=== PATIENT | female | born 1975 | race Caucasian/White ===

== ENCOUNTER 2020-05-05 06:33 | Day surgery (SDC) | payer OTHER ==
[2020-05-01 11:12] LABS: HEMATOCRIT 31.4 % (36.0-47.0); HEMOGLOBIN 10.5 g/dL (12.0-15.5); MEAN CORPUSCULAR HEMOGLOBIN 27.8 pg (27.0-33.4); MEAN CORPUSCULAR HGB CONC 33.5 g/dL (32.0-36.0); MEAN CORPUSCULAR VOLUME 83 fl (80-97); PLATELET COUNT 346 10^3/uL (150-450); RED BLOOD COUNT 3.78 10^6/uL (3.72-5.28); RED CELL DISTRIBUTION WIDTH 15.5 % (11.5-14.0); WHITE BLOOD COUNT 6.2 10^3/uL (4.0-10.5)
[2020-05-01 11:21] LABS: APPEARANCE,URINE CLEAR; BILIRUBIN,URINE NEGATIVE (NEGATIVE); COLOR,URINE YELLOW; GLUCOSE, URINE NEGATIVE (NEGATIVE); KETONES,URINE NEGATIVE (NEGATIVE); LEUKOCYTE ESTERASE,URINE NEGATIVE (NEGATIVE); NITRITE,URINE NEGATIVE (NEGATIVE); PROTEIN,URINE NEGATIVE (NEGATIVE); URINE SPECIFIC GRAVITY 1.018; UROBILINOGEN,URINE NEGATIVE mg/dL (<2.0)
[2020-05-01 11:48] LABS: ANION GAP 7 (5-19); BLOOD UREA NITROGEN 14 mg/dL (7-20); CALCIUM 8.8 mg/dL (8.4-10.2); CARBON DIOXIDE 26 mmol/L (22-30); CHLORIDE 105 mmol/L (98-107); GLUCOSE 92 mg/dL (75-110); POTASSIUM 4.6 mmol/L (3.6-5.0)
[~2020-05-05 06:33] MED LIST: CEFAZOLIN 2 GM/D5W RTU 2 GM/50 ML RTUPB IV ONE; CEFAZOLIN 2 GM/D5W RTU 2 GM/50 ML RTUPB IV PRN; DEXAMETHASONE SOD PHOSPHATE INJ 4 MG/1 ML VIAL ONE; FENTANYL CITRATE INJ/PF 100 MCG/2 ML AMPUL ONE; LACTATED RINGERS 1000 ML IV PRN; LIDOCAINE 0.5% INJ-PF (5 MG/ML) 50 ML SDV SUBCUT PRN; MIDAZOLAM 2 MG/2 ML INJ ONE; ONDANSETRON HCL INJ/PF 4 MG/2 ML SDV ONE; PROPOFOL INJ 200 MG/20 ML VIAL IV ONE
[2020-05-05] MEDS ORDERED: GLYCOPYRROLATE 1 MG/5 ML VIAL ONE (07:00)
[2020-05-05] MEDS ORDERED: SUCCINYLCHOLINE CHLORIDE INJ 200 MG/10 ML VIAL ONE (07:00)
[2020-05-05] MEDS ORDERED: ROPIVACAINE HCL 0.2% INJ/PF (2 MG/ML) 20 ML SDV ONE (07:46)
[2020-05-05] MEDS ORDERED: MEPERIDINE HCL/PF INJ 25 MG/1 ML DISP.SYRIN IV PRN (09:11)
[2020-05-05] MEDS ORDERED: FENTANYL CITRATE INJ/PF 100 MCG/2 ML AMPUL IV PRN ×3 (09:11)
[2020-05-05] MEDS ORDERED: DIPHENHYDRAMINE HCL 50 MG/ML VIAL IV PRN (09:11)
[2020-05-05] MEDS ORDERED: ONDANSETRON HCL INJ/PF 4 MG/2 ML SDV IV PRN ×2 (09:11→10:29)
[2020-05-05] MEDS ORDERED: PROMETHAZINE HCL INJ 25 MG/1 ML VIAL IV PRN ×2 (09:11)
[2020-05-05] MEDS ORDERED: MORPHINE SULFATE 10 MG/ML INJ IV PRN (09:11)
[2020-05-05] MEDS ORDERED: OXYCODONE-ACETAMINOPHEN 5-325 MG TABLET PO PRN (10:29)
--- NOTE | 2020-05-05 10:29 | Operative Report ---
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 Posterior interosseous nerve neurolysis. SURGEON: EDUIN MARIA ANESTHESIA: GA COMPLICATIONS: None ESTIMATED BLOOD LOSS: Minimal PROCEDURE: Indication for above procedure: 44-year-old female who sustained a fall onto her outstretched right upper extremity approximate 1 year ago. Patient was found to have a radial head intra-articular fracture. Initial treatment was nonoperative treatment over time patient developed mechanical symptoms including clicking and pain. MRI was performed demonstrating degenerative changes of the radiocapitellar joint. We discussed treatment options including operative versus nonoperative intervention after attempting consider measures decision was made to proceed with operative treatment. Further discussion was had in the preoperative holding area after further discussion decision was made to forego right elbow arthroscopy and proceed with open procedure including right radial head excision with possible arthroplasty surgery as indicated. Patient verbalized understanding consented for surgical procedure. Procedure In Detail: Patient was seen and evaluated in the preoperative holding area. The RIGHT upper extremity was initialized and marked. Patient received 2g of Ancef IV for bacterial prophylaxis. Patient was taken back to the operative room where transferred to the operative table and placed under general anesthesia. Once they were adequately anesthetized a nonsterile tourniquet was placed on the upper extremity. A surgical team debriefing was performed ensuring all instrumentation was available, the surgical procedure was discussed with possible concerns reviewed. The upper extremity was prepped with ChloraPrep and draped in a sterile fashion. A timeout was done identifying correct patient, procedure and extremity everyone in attendance agree with this and verbalized no concerns. The extremity was exsanguinated the tourniquet was inflated to 250 mmHg. Longitudinal skin incision was made centered over the radial head. Tabor's interval was utilized. Throughout the procedure the forearm was remained in pronation. The capsule was then incised to expose the radiocapitellar joint. There is no evidence of a lateral ulnar collateral ligament or radial collateral ligament disruption. There was significant eburnation of the radial head with a 7 mm x 5 mm chondral defect along the lateral third of the capitellar articulation. At that point decision was made to proceed with radial head excision. While maintaining pronation and elevating the supinator the radial neck was excised at the radial neck and removed. Wound was copiously irrigated with normal saline. Capsule was then elevated anteriorly. Synovectomy was performed as well. Given patient's preoperative symptoms of possible radial tunnel the posterior interosseous nerve was identified as it entered the supinator and neurolysis was performed proximally and distally to ensure no evidence of contracture as it past the supinator crest. No evidence of compression with pronation and supination. With the radial head excised decision was made to proceed with radial head arthroplasty with concomitant microfracture. On the back table the radial head measured approximately 24 mm given patient has no instability decision was made to downsize the radial head size to avoid overstuffing the radiocapitellar joint. Utilizing the [employer] anatomic radial head system the opening awl was utilized and reaming was performed up to a size 9 reamer with good fit. A size 9 x 0 mm stem with a 22 mm head was then trialed there was good fit within the radial shaft. There is no evidence of instability. Patient had full passive range of motion. C-arm fluoroscopy was obtained demonstrating excellent contour of the radiocapitellar joint no evidence of subluxation. There was also no evidence of stuffing along the radiocapitellar joint. The 7 mm x 5 mm chondral defect was then debrided with a chondroplasty and the microfracture awl was replaced obtaining good bleeding from the cancellous bone. The final implant was then placed on the back table and construction which included the Acumed anatomic radial head system 22 mm, right radial head with 9 mm x 0.0 mm stem. Wound was copiously irrigated with normal saline. Implant was then inserted and radiocapitellar joint reduced. Wound was copiously irrigated with normal saline. Final C arm fluoroscopy was obtained demonstrating full stability throughout elbow range of motion including flexion/extension with full pronation and supination. The capsule was closed with interrupted #2 FiberWire suture. Fascial interval was closed with interrupted 0 Vicryl suture. Tourniquet was then deflated. And peripheral bleeding was controlled with bipolar cautery. Skin was closed with running subcuticular 4-0 Monocryl reinforced with Dermabond and Steri-Strips. Patient was placed in a well-padded posterior elbow splint with the elbow resting at 90 degrees of flexion. Sponge counts, instrument counts, needle counts were correct. Patient was then awoken from anesthesia. Transferred from the operating room table to the operating room stretcher. There was no intraoperative complications patient tolerated procedure well stable to PACU. Postop plan: Patient follow in the office in 2 weeks at which point will obtain radiographs. We will begin elbow range of motion 10 days postoperatively. IMPLANTS Acumed anatomic radial head system 22 mm head, right with 9 mm x 0 mm stem
[2020-05-05 12:56] VITALS: BP 119/71
--- NOTE | 2020-05-05 14:38 | RADIOLOGY REPORT (SQ) ---
EXAM DESCRIPTION: NO CHG FLUORO; ELBOW RIGHT OVER 2 VIEWS IMAGES COMPLETED DATE/TIME: 05/05/2020 10:34 am REASON FOR STUDY: ORIF RIGHT ELBOW ASSISTED WITH FLUORO IN OR S52.121S DISPLACED FRACTURE OF HEAD O F RIGHT RADIUS, SEQUELA COMPARISON: None. FLUOROSCOPY TIME: 0.7 minutes 4 images saved to PACS. TECHNIQUE: Intra-operative images acquired during surgical procedure to evaluate progress. NUMBER OF IMAGES: 4.0 LIMITATIONS: None. FINDINGS: Radial head prosthesis in expected location. IMPRESSION: IMAGE(S) OBTAINED DURING PROCEDURE. COMMENT: Quality ID 145: Final reports for procedures using fluoroscopy that document radiation exp osure indices, or exposure time and number of fluorographic images (if radiation exposure indices are not available) Please consult full operative report of the attending physician for description of the procedure. TECHNICAL DOCUMENTATION: JOB ID: [id number] 2010 [employer]- All Rights Reserved Reading location - IP/workstation name: [email or web address]
--- NOTE | 2020-05-05 14:38 | RADIOLOGY REPORT (SQ) ---
EXAM DESCRIPTION: NO CHG FLUORO; ELBOW RIGHT OVER 2 VIEWS IMAGES COMPLETED DATE/TIME: 05/05/2020 10:34 am REASON FOR STUDY: ORIF RIGHT ELBOW ASSISTED WITH FLUORO IN OR S52.121S DISPLACED FRACTURE OF HEAD O F RIGHT RADIUS, SEQUELA COMPARISON: None. FLUOROSCOPY TIME: 0.7 minutes 4 images saved to PACS. TECHNIQUE: Intra-operative images acquired during surgical procedure to evaluate progress. NUMBER OF IMAGES: 4.0 LIMITATIONS: None. FINDINGS: Radial head prosthesis in expected location. IMPRESSION: IMAGE(S) OBTAINED DURING PROCEDURE. COMMENT: Quality ID [id number]: Final reports for procedures using fluoroscopy that document radiation exp osure indices, or exposure time and number of fluorographic images (if radiation exposure indices are not available) Please consult full operative report of the attending physician for description of the procedure. TECHNICAL DOCUMENTATION: JOB ID: [id number] 2010 [employer]- All Rights Reserved Reading location - IP/workstation name: [email or web address]
== END 2020-05-05 12:15 | disposition home or self-care (01) ==
LOC: OROUT 06:33
PROVIDERS: ATTEND Orthopaedic Surgery
DX: S52.121P Displaced fracture of head of right radius, subsequent encounter for closed fracture with malunion (principal); W19.XXXD Unspecified fall, subsequent encounter; M21.831 Other specified acquired deformities of right forearm; G56.31 Lesion of radial nerve, right upper limb; Z20.828 Contact with and (suspected) exposure to other viral communicable diseases; F32.9 Major depressive disorder, single episode, unspecified; F41.9 Anxiety disorder, unspecified; Z79.899 Other long term (current) drug therapy; Z82.61 Family history of arthritis
CPT/HCPCS: 24366; 85027; 87635; 81025; 80048; 81001; 73080; 64415; 76942; 01740; C1776; J2250; J1100; J3010; J0330; J2405; J2704; J0690; J3490; J2795; C9803